=== PATIENT | female | born 1995 | race Asian ===

== ENCOUNTER 2021-06-17 13:10 | Emergency (ER) | payer OTHER ==
[~2021-06-17] VITALS: Ht 175.3 cm; Wt 86.6 kg
[2021-06-17 15:50] VITALS: BP 134/76; TEMP 98
== END 2021-06-17 15:51 | disposition home or self-care (01) ==
LOC: ED 13:10
DX: S40.012A Contusion of left shoulder, initial encounter (principal); M79.18 Myalgia, other site; R25.2 Cramp and spasm; V49.40XA Driver injured in collision with unspecified motor vehicles in traffic accident, initial encounter; Y92.488 Other paved roadways as the place of occurrence of the external cause
CPT/HCPCS: 81025; 99283; J1885